=== PATIENT | female | born 1960 ===

== ENCOUNTER 2017-03-28 14:19 | Day surgery (SDC) | payer OTHER ==
[2017-03-28 14:36] VITALS: BMI 28.7
[2017-03-28] MEDS ORDERED: Lidocaine 2% Inj (20ml) ONE ×2 (14:49→17:01)
[2017-03-28] MEDS ORDERED: Midazolam 2 MG/2 ML VIAL ONE (14:50)
[2017-03-28] MEDS ORDERED: Iohexol 350mgl/ml 50 ML ONE (14:50)
[2017-03-28] MEDS ORDERED: Iodixanol 320 MG/ML 200 ML BOTTLE IV ONE (14:50)
[2017-03-28] MEDS ORDERED: Sodium Chloride 0.9% 1,000 ML IV SCH (17:30)
[2017-03-28 18:16] VITALS: TEMP 98.6
[2017-03-28 19:06] VITALS: BP 153/79; PULSE 90; RESP 20; O2SAT 99
--- NOTE | 2017-03-28 22:03 | CARD ---
APPROVED REPORT EKG Measurement Heart [id number] <Conclusion> Normal sinus rhythm Q wave in III, Avf Abnormal ECG
--- NOTE | 2017-04-24 08:17 | CARDCATH ---
PROCEDURE DATE: 03/28/2017 PROCEDURE: Left circumflex coronary angioplasty and stent placement. REFERRING PHYSICIAN: . PERFORMING PHYSICIAN: Da Rodriguez MD CLINICAL INDICATIONS: 1. Angina. 2. Hypertension. 3. Hyperlipidemia. 4. Coronary artery disease. PROCEDURE: After informed consent, the patient was prepped and draped in the usual sterile fashion. A 2% lidocaine was given in the right *------* for local anesthesia. Using micropuncture technique, 6-[place] sheath was introduced. The patient was premedicated with aspirin, Plavix and IV heparin. ACT was maintained above 250. PROCEDURES: Left main coronary artery was engaged using XB3.5 guide catheter. Initial angiography has confirmed proximal 80% left circumflex stenosis and distal 99% left circumflex stenosis. There was EVELYN-2 flow noted. The lesion was threaded using BMW wire. Both the lesions were predilated using 2.5 x 12 compliant balloon. A distal lesion was stented using 2.5 x 18 Xience Alpine drug-eluting stent. The proximal lesion was stented using 2.5 x 15 Xience Alpine drug-eluting stent. Excellent final angiographic results *------* EVELYN-3 flow noted. CONCLUSIONS: 1. Left circumflex coronary intervention with drug-eluting stents. 2. Excellent final angiographic results. Recommend continue Plavix for one year, aspirin, beta blockers and statins for life. Da Rodriguez MD
== END 2017-03-28 19:56 | disposition short-term general hospital (02) ==
LOC: CATH 14:19 → MERGE 14:19 → CCU 17:22 → CATH 19:56
PROVIDERS: ATTEND Internal Medicine Cardiovascular Disease
DX: I25.118 Atherosclerotic heart disease of native coronary artery with other forms of angina pectoris (principal); I10 Essential (primary) hypertension; E78.5 Hyperlipidemia, unspecified
CPT/HCPCS: 85175; 93005; 93454; 99152; 99153; C1725; C1760; C1769 ×3; C1874 ×2; C1887; C2629; C9600; J1644 ×2; J2250; J3010; J7030; J7040; Q9967